=== PATIENT | female | born 1955 | race Caucasian/White ===

== ENCOUNTER 2019-10-07 11:10 | Outpatient (CLI) | payer BC, SELFPAY ==
--- NOTE | ~2019-10-07 | XR_ITS ---
EXAMINATION: XR knee RT 3V DATE: 10/07/2019 11:54 INDICATION: Unspecified injury of unspecified lower leg, initial encounter. TECHNIQUE: 3 views of right knee were obtained. COMPARISON: Right knee radiographs 01/12/2007 FINDINGS: Bone alignment is normal. No fracture. There is mild osteoarthritis of patellofemoral collette rtment. No knee joint effusion. IMPRESSION: 1. Mild right knee osteoarthritis. Reviewed, dictated and finalized at location A.
--- NOTE | ~2019-10-07 | XR_ITS ---
EXAMINATION: XR knee LT 3V DATE: 10/07/2019 11:54 INDICATION: Unspecified injury of unspecified lower leg, initial encounter. TECHNIQUE: 3 views of left knee were obtained. COMPARISON: Left knee radiographs 01/12/2007 FINDINGS: Bone alignment is normal. No fracture. There is mild osteoarthritis of patellofemoral collette rtment. No knee joint effusion. IMPRESSION: 1. Mild left knee osteoarthritis. Reviewed, dictated and finalized at location A.
== END 2019-10-07 11:11 | disposition home or self-care (01) ==
LOC: ANHIMG 11:21
PROVIDERS: PCP Family Medicine; Visit Provider Physician Assistant Medical
DX: M17.0 Bilateral primary osteoarthritis of knee (principal)
CPT/HCPCS: 73562

== ENCOUNTER 2020-02-04 11:04 | Outpatient (CLI) | payer BC, SELFPAY ==
[2020-02-04 11:21] LABS: Basophils Absolute Auto 0.1 K/mm3 (0.0-0.1); Basophils Percent Auto 1.2 % (0.2-1.2); Eosinophils Absolute Auto 0.2 K/mm3 (0-0.3); Eosinophils Percent Auto 2.8 % (0-4.4); Hemoglobin 14.4 g/dL (12.0-15.0); Immature Granulocyte Absolute 0.01 K/mm3 (0.00-0.031); Immature Granulocyte Percent A 0.2 % (0-0.5); Lymphocytes Absolute Auto 1.63 K/mm3 (0.9-3.2); Mean Corpuscular HGB Conc 32.7 g/dl (32-36); Mean Corpuscular Hemoglobin 31.5 pg (26-34); Mean Corpuscular Volume 96.3 fl (80-100); Mean Platelet Volume 8.4 fl (7.4-10.4); Monocytes Absolute Auto 0.5 K/mm3 (0.1-0.6); Monocytes Percent Auto 9.3 % (2.6-8.5); Neutrophils Absolute Auto 3.2 K/mm3 (1.3-6.7); Neutrophils Percent Auto 57.5 % (45.5-73.1); Platelet Count Result 395 k/mm3 (150-375); Red Blood Count 4.57 M/mm3 (4.2-5.4); Red Cell Distribution Width 12.6 % (11.5-14.5); White Blood Count 5.6 K/mm3 (4.5-10.0)
[2020-02-04 11:28] LABS: Blood Urea Nitrogen 9 mg/dL (8-26); Carbon Dioxide 29 mmol/L (22-30); Chloride 101 mmol/L (98-109); Estimated Glomerular Filt Rate > 60; Glucose 91 mg/dL (70-105); Potassium 4.3 mmol/L (3.5-4.9); Sodium 139 mmol/L (138-146)
== END 2020-02-04 11:05 | disposition home or self-care (01) ==
PROVIDERS: PCP Family Medicine; Visit Provider Internal Medicine Hematology & Oncology
DX: D47.3 Essential (hemorrhagic) thrombocythemia (principal)
CPT/HCPCS: 36415; 80048; 85025

== ENCOUNTER 2020-06-08 10:30 | Outpatient (CLI) | payer BC, SELFPAY | END 2020-06-08 10:31 | disposition home or self-care (01) | LOC: ANHCOVIDVC 10:30 | PROVIDERS: PCP Family Medicine | DX: Z23 Encounter for immunization (principal) | CPT/HCPCS: 0001A; 91300 ==

== ENCOUNTER 2020-06-29 10:31 | Outpatient (CLI) | payer BC, SELFPAY | END 2020-06-29 10:32 | disposition home or self-care (01) | LOC: ANHCOVIDVC 10:31 | PROVIDERS: PCP Family Medicine | DX: Z23 Encounter for immunization (principal) | CPT/HCPCS: 0002A; 91300 ==

== ENCOUNTER 2022-01-31 13:23 | Outpatient (CLI) | payer BC, SELFPAY ==
[2022-01-31 13:37] LABS: Basophils Absolute Auto 0.1 K/mm3 (0.0-0.1); Basophils Percent Auto 1.2 % (0.2-1.2); Eosinophils Absolute Auto 0.2 K/mm3 (0-0.3); Eosinophils Percent Auto 3.4 % (0-4.4); Hematocrit 44.7 % (37.0-47.0); Hemoglobin 14.7 g/dL (12.0-15.0); Immature Granulocyte Absolute 0.01 K/mm3 (0.00-0.031); Immature Granulocyte Percent A 0.1 % (0-0.5); Lymphocytes Absolute Auto 1.91 K/mm3 (0.9-3.2); Mean Corpuscular HGB Conc 32.9 g/dl (32-36); Mean Corpuscular Hemoglobin 31.6 pg (26-34); Mean Corpuscular Volume 96.1 fl (80-100); Mean Platelet Volume 8.4 fl (7.4-10.4); Monocytes Absolute Auto 0.8 K/mm3 (0.1-0.6); Neutrophils Absolute Auto 3.9 K/mm3 (1.3-6.7); Neutrophils Percent Auto 56.3 % (45.5-73.1); Platelet Count Result 399 k/mm3 (150-375); Red Blood Count 4.65 M/mm3 (4.2-5.4); Red Cell Distribution Width 12.5 % (11.5-14.5); White Blood Count 6.8 K/mm3 (4.5-10.0)
[2022-01-31 13:42] LABS: Blood Urea Nitrogen 13 mg/dL (8-26); Carbon Dioxide 29 mmol/L (22-30); Chloride 102 mmol/L (98-109); Estimated Glomerular Filt Rate > 60; Glucose 80 mg/dL (70-105); Ionized Calcium (POC) 1.18 mmol/L (1.11-1.31); Potassium 4.4 mmol/L (3.5-4.9); Sodium 140 mmol/L (138-146)
[2022-01-31 16:50] LABS: Alanine Aminotransferase 17 U/L (6-35); Albumin Level 4.7 g/dL (3.5-5.1); Alkaline Phosphatase 71 U/L (38-126); Anion Gap 6 mmol/L (8-16); Aspartate Amino Transferase 24 U/L (14-36); Bilirubin,Total 0.2 mg/dL (0.2-1.3); Blood Urea Nitrogen 13 mg/dL (7-17); Calcium 9.3 mg/dL (8.4-10.2); Carbon Dioxide 31 mmol/L (22-30); Chloride 100 mmol/L (98-107); Estimated Glomerular Filt Rate > 60; Glucose 76 mg/dL (65-110); Potassium 4.3 mmol/L (3.4-5.0); Sodium 137 mmol/L (137-145)
== END 2022-01-31 13:24 | disposition home or self-care (01) ==
LOC: ANHLAB 13:25
PROVIDERS: PCP Family Medicine; Visit Provider Internal Medicine Hematology & Oncology
DX: D75.839 Thrombocytosis, unspecified (principal)
CPT/HCPCS: 36415; 80047; 80053; 85025

== ENCOUNTER 2022-09-23 11:49 | Outpatient (CLI) | payer BC, SELFPAY ==
--- NOTE | ~2022-09-23 | MM_ITS ---
EXAMINATION: MM screening [facility] BI w nohelia HISTORY: Screening mammogram TECHNIQUE: Craniocaudal and mediolateral oblique 3-D tomosynthesis images were obtained and synthetic 2-D images were generated. CAD analysis was submitted and interpreted. COMPARISON: April 19, 2018, June 06, 2016 bilateral screening mammogram examinations BREAST PARENCHYMAL COMPOSITION: There are scattered areas of fibroglandular density. FINDINGS: There is an irregular 2 mm hypodensity opacity in the posterior mid right breast on cranioc audal view. Diagnostic right mammogram and right breast ultrasound examination are recommended. No other suspicious mass, architectural distortion, malignant calcification, skin thickening or retra ction of either breast is detected. IMPRESSION: 1. 2 mm irregular opacity in the posterior central right breast on craniocaudal view 2. Diagnostic right mammogram and right breast ultrasound examination are recommended BI-RADS Category 0: Incomplete: Needs additional imaging evaluation. Reviewed, dictated and finalized at location A. IMPRESSION: 1. 2 mm irregular opacity in the posterior central right breast on craniocaudal view 2. Diagnostic right mammogram and right breast ultrasound examination are recom mended BI-RADS Category 0: Incomplete: Needs additional imaging evaluation.
== END 2022-09-23 11:50 | disposition home or self-care (01) ==
LOC: ANHIMG 11:51
PROVIDERS: PCP Family Medicine; Visit Provider Family Medicine
DX: Z12.31 Encounter for screening mammogram for malignant neoplasm of breast (principal); R92.8 Other abnormal and inconclusive findings on diagnostic imaging of breast
CPT/HCPCS: 77063; 77067

== ENCOUNTER 2022-10-21 11:40 | Outpatient (CLI) | payer BC, SELFPAY ==
--- NOTE | ~2022-10-21 | MM_ITS ---
EXAMINATION: MM diagnostic [facility] RT w nohelia HISTORY: Right breast asymmetry on screening mammogram TECHNIQUE: Additional 3-D tomosynthesis images of the right breast were performed and synthetic 2-D i mages were generated. CAD analysis was submitted and interpreted. COMPARISON: 09/23/2022, 06/09/2018, 06/06/2016 FINDINGS: There is a return to baseline fibroglandular appearance with spot compression of the right breast in the area questioned on screening mammogram. IMPRESSION: 1. No mammographic evidence of malignancy. 2. Recommend routine screening mammography in one year. BI-RADS Category 1: Negative Reviewed, dictated and finalized at location B.
== END 2022-10-21 11:41 | disposition home or self-care (01) ==
LOC: ANHIMG 11:46
PROVIDERS: PCP Family Medicine; Visit Provider Nurse Practitioner Family
DX: R92.8 Other abnormal and inconclusive findings on diagnostic imaging of breast (principal)
CPT/HCPCS: 77061; 77065; G0279

== ENCOUNTER → 2022-11-07 13:30 | Outpatient (CLI) | payer BC, SELFPAY ==
--- NOTE | ~2022-11-07 | XR_ITS ---
EXAMINATION: XR shoulder LT min 2V DATE: 11/07/2022 13:52 INDICATION: Left shoulder injury. TECHNIQUE: 4 views of left shoulder were obtained. COMPARISON: None. FINDINGS: Bone alignment is normal. No fracture. There is mild osteoarthritis of glenohumeral joint a nd moderate osteoarthritis of acromioclavicular joint. IMPRESSION: 1. Polyarticular osteoarthritis. Reviewed, dictated and finalized at location E.
== END ==
PROVIDERS: PCP Family Medicine; Visit Provider Nurse Practitioner Family
DX: M19.012 Primary osteoarthritis, left shoulder (principal)
CPT/HCPCS: 73030

== ENCOUNTER 2022-12-01 08:39 | Outpatient (CLI) | payer BC, SELFPAY ==
--- NOTE | ~2022-12-01 | MR_ITS ---
MRI of the left shoulder Technique: Axial proton-density fat-sat images, coronal proton density fat-sat and T2 fat-sat images, and sagittal T1-weighted and T2 fat-sat images were acquired. Clinical History: Pain Findings: There is mild AC joint degenerative change. Coracoclavicular, coracoacromial, and coracohum eral ligaments are intact. There is focal full-thickness tear at the distal supraspinatus tendon insertion, measuring 8 x 7 mm i n extent. Infraspinatus tendon is intact, without partial or full-thickness tear. Subscapularis tendo n is intact with mild to moderate tendinosis. Tendon of the long head of the biceps is intact. No labral tear identified. There is thickening and increased signal of the inferior glenohumeral ligament. No glenohumeral joint effusion. No fluid distention of the subacromial/subdeltoid bursa. No degenerative change of the gle nohumeral joint. No muscle atrophy or edema. Impression: 8 x 7 mm full-thickness tear at the distal supraspinatus tendon insertion. Thickening and increased signal of the inferior glenohumeral ligament could reflect adhesive capsulit is. Correlate clinically. Mild AC joint degenerative change. Reviewed, dictated and finalized at [facility]. Impression: 8 x 7 mm full-thickness tear at the distal supraspinatus tendon insertion. Thickening and increased signal of the inferior glenohumeral ligament could ref lect adhesive capsulitis. Correlate clinically. Mild AC joint degenerative change.
== END 2022-12-01 08:40 | disposition home or self-care (01) ==
PROVIDERS: PCP Family Medicine; Visit Provider Nurse Practitioner Family
DX: M25.612 Stiffness of left shoulder, not elsewhere classified (principal); M75.102 Unspecified rotator cuff tear or rupture of left shoulder, not specified as traumatic
CPT/HCPCS: 73221

== ENCOUNTER 2023-01-31 12:46 | Outpatient (CLI) | payer MEDICARE, BC, SELFPAY ==
[2023-01-31 13:03] LABS: Basophils Absolute Auto 0.1 K/mm3 (0.0-0.1); Basophils Percent Auto 1.1 % (0.2-1.2); Eosinophils Absolute Auto 0.3 K/mm3 (0-0.3); Eosinophils Percent Auto 3.7 % (0-4.4); Hematocrit 43.6 % (37.0-47.0); Hemoglobin 14.2 g/dL (12.0-15.0); Immature Granulocyte Absolute 0.02 K/mm3 (0.00-0.031); Immature Granulocyte Percent A 0.2 % (0-0.5); Lymphocytes Absolute Auto 2.67 K/mm3 (0.9-3.2); Lymphocytes Percent Auto 31.7 % (18.3-44.2); Mean Corpuscular HGB Conc 32.6 g/dl (32-36); Mean Corpuscular Hemoglobin 31.2 pg (26-34); Mean Corpuscular Volume 95.8 fl (80-100); Mean Platelet Volume 9.1 fl (7.4-10.4); Monocytes Absolute Auto 0.8 K/mm3 (0.1-0.6); Neutrophils Absolute Auto 4.6 K/mm3 (1.3-6.7); Neutrophils Percent Auto 54.3 % (45.5-73.1); Platelet Count Result 344 k/mm3 (150-375); Red Blood Count 4.55 M/mm3 (4.2-5.4); Red Cell Distribution Width 12.7 % (11.5-14.5); White Blood Count 8.4 K/mm3 (4.5-10.0)
[2023-01-31 13:08] LABS: Blood Urea Nitrogen 10 mg/dL (8-26); Carbon Dioxide 25 mmol/L (22-30); Chloride 98 mmol/L (98-109); Estimated Glomerular Filt Rate > 60; Glucose 106 mg/dL (70-105); Ionized Calcium (POC) 1.12 mmol/L (1.11-1.31); Potassium 3.9 mmol/L (3.5-4.9); Sodium 137 mmol/L (138-146)
== END 2023-01-31 12:47 | disposition home or self-care (01) ==
LOC: ANHLAB 12:51
PROVIDERS: PCP Family Medicine; Visit Provider Internal Medicine Hematology & Oncology
DX: D75.839 Thrombocytosis, unspecified (principal)
CPT/HCPCS: 36415; 80047; 85025

== ENCOUNTER 2023-04-17 12:20 | Outpatient (CLI) | payer MEDICARE, BC, SELFPAY ==
--- NOTE | 2023-04-17 12:46 | ECG_ITS ---
Measurements Intervals [place] Rate: 79 P: 55 FL: 160 QRS: 43 QRSD: 87 T: 34 QT: 346 QTc: 398 Interpretive Statements SINUS RHYTHM MILD NONSPECIFIC T-WAVE FLATTENING BORDERLINE ECG Electronically Signed On 04-17-2023 18:30:03 COURT USHER by Jerry Cassidy M.D.
== END 2023-04-17 12:21 | disposition home or self-care (01) ==
LOC: ANHSURGERY 12:26
PROVIDERS: PCP Family Medicine; Visit Provider Orthopaedic Surgery
DX: Z87.891 Personal history of nicotine dependence (principal); Z01.818 Encounter for other preprocedural examination; R94.31 Abnormal electrocardiogram [ECG] [EKG]
CPT/HCPCS: 93005

== ENCOUNTER 2023-04-21 05:05 | Day surgery (SDC) | payer MEDICARE, BC, SELFPAY ==
--- NOTE | 2023-04-10 12:58 | PC.NURSE ---
Report to the Outpatient Waiting Room, entrance under the green pavilion located off [facility], at time _0830 on date __04/19/23 . Planned Procedure Time: _1030 . Time changes happen often and if your time is changed the preop area will call you the afternoon before. - You and your visitor will be asked to self-screen and do not enter if you have any COVID symptoms. - A mask is optional within the hospital at this time. Patients may have clear liquids (water, carbonated beverages, clear teas, apple juice) until 3 hours prior to surgery( 7:30 AM ) with a maximum of 20 ounces. - No food from midnight until time of surgery Take the following medications with a SIP of water the morning of surgery: _ESCITALOPRAM DO NOT STOP ANY OF YOUR OTHER PRESCRIPTION MEDICATIONS PRIOR TO SURGERY ?EXCEPT THE FOLLOWING Medications to discontinue per physician __ALL VITAMINS AND SUPPLEMENTS 3 DAYS PRE OP.LAST DOSE 04/15/[address] CARBAJAL MAY TAKE TYLENOL IF NEEDED FOR PAIN Please no make-up, nail icelandic, hairspray, perfume, deodorant, or body powder the day of surgery. No jewelry (including any body piercings) or valuables the day of surgery, leave them at home. Please take a shower or bath the night before, or the morning of, surgery with an antibacterial soap. Wear comfortable, loose fitting clothing. Children are encouraged to wear pajamas. - Jewelry must be removed prior to entering the operating room. Rings and piercings that are not removed may be cut off. - The hospital will not accept responsibility for valuables. - Please leave all valuables, including medications, at home the day of surgery. If you are going home after surgery, a licensed yard driver must drive you home. - NO public transportation without another adult if you receive anesthesia. - We recommend that an adult stay with you for 24 hours following discharge. - We also recommend that you do not drive, make important decision, drink alcoholic beverages, or take any drugs that were not prescribed by your health care provider for at least 24 hours after your discharge time. Follow any additional instructions given to you from your surgeon. If you or anyone in your household have experienced Covid symptoms in the past week, please notify your surgeon or the nurse liaison at the phone number below for possible testing. Telephone instructions given to _PATIENT and asked if any additional questions and then verbalized understanding. Patient advised to call surgeon office or pre surgery nurse liaison [phone] if any additional questions.
[2023-04-10 13:11] VITALS: BMI 27.6
--- NOTE | 2023-04-14 10:41 | PC.NURSE ---
Report to the Outpatient Waiting Room, entrance under the green pavilion located off [facility], at time _0600 on date _04/21/23 . Planned Procedure Time: 0730 . Time changes happen often and if your time is changed the preop area will call you the afternoon before. - You and your visitor will be asked to self-screen and do not enter if you have any COVID symptoms. - A mask is optional within the hospital at this time. Patients may have clear liquids (water, carbonated beverages, clear teas, apple juice) until 3 hours prior to surgery ( 4:30 AM)with a maximum of 20 ounces. - No food from midnight until time of surgery Take the following medications with a SIP of water the morning of surgery: ___ESCITALOPRAM DO NOT STOP ANY OF YOUR OTHER PRESCRIPTION MEDICATIONS PRIOR TO SURGERY ?EXCEPT THE FOLLOWING Medications to discontinue per physician _HOLD ALL VITAMINS AND SUPPLEMENTS 3 DAYS PRE OP.LAST DOSE 04/17/[address] CARBAJAL_ Please no make-up, nail wolof, hairspray, perfume, deodorant, or body powder the day of surgery. No jewelry (including any body piercings) or valuables the day of surgery, leave them at home. Please take a shower or bath the night before, or the morning of, surgery with an antibacterial soap. Wear comfortable, loose fitting clothing. Children are encouraged to wear pajamas. - Jewelry must be removed prior to entering the operating room. Rings and piercings that are not removed may be cut off. - The hospital will not accept responsibility for valuables. - Please leave all valuables, including medications, at home the day of surgery. If you are going home after surgery, a licensed driver supervisor must drive you home. - NO public transportation without another adult if you receive anesthesia. - We recommend that an adult stay with you for 24 hours following discharge. - We also recommend that you do not drive, make important decision, drink alcoholic beverages, or take any drugs that were not prescribed by your health care provider for at least 24 hours after your discharge time. Follow any additional instructions given to you from your surgeon. If you or anyone in your household have experienced Covid symptoms in the past week, please notify your surgeon or the nurse liaison at the phone number below for possible testing. Telephone instructions given to ___PATIENT and asked if any additional questions and then verbalized understanding. Patient advised to call surgeon office or pre surgery nurse liaison [phone] if any additional questions.
[2023-04-21] VITALS (12 sets, daily range): BP systolic 100–143; BP diastolic 58–85; PULSE 70–93; RESP 12–20; TEMP 36.5–36.6; O2SAT 95–100
[2023-04-21] MEDS: CELECOXIB 200 MG CAPSULE PO (06:35)
[2023-04-21] MEDS: ACETAMINOPHEN 500 MG TABLET 1000 MG PO (06:35)
[2023-04-21] MEDS: LACTATED RINGERS 1,000 ML 30 ML IV CONT ×2 (06:40→09:31)
--- NOTE | 2023-04-21 07:14 | WPDHPUPDATE1 ---
History and Physical Update Update Date/Time: 04/21/23 07:14 History and Physical has been reviewed, including an updated exam of the patient. There are NO changes in the patient's condition. Risks, benefits, and alternatives have been discussed and questions answered. Patient agrees to proceed with procedure.
--- NOTE | 2023-04-21 07:17 | WPDANESEPPF ---
Anes - Initial Pre Proc Eval Procedure: Operation Date: 04/21/23 07:30 Proposed Procedures p Left Rotator Cuff Repair - Juan José Barbosa MD Date/Time: 04/21/23 07:17 Surgeon: Juan José Barbosa MD Pre Op Diagnosis: left rotator cuff tear Patient Data Age: 67 Gender: F Height: 1.57 m Weight: 71.1 kg Last Vital Signs Temp 36.5 C 04/21/23 07:10 Pulse 84 04/21/23 07:10 Resp 16 04/21/23 07:10 BP 100/64 04/21/23 07:10 Pulse Ox 96 04/21/23 07:10 O2 Del Method Room Air 04/21/23 07:10 Allergies Allergy/AdvReac Type Severity Reaction Status Date / Time aspirin Allergy Unknown Fainting Verified 04/21/23 06:15 cetirizine Allergy Unknown Fatigued Verified 04/21/23 06:15 ibandronate sodium Allergy Unknown Muscle Pain Verified 04/21/23 06:15 Penicillins Allergy Unknown Swelling/ Verified 04/21/23 06:15 HIGH FEVER Home Medications Medication Instructions Recorded Confirmed Type esomeprazole magnesium 20 mg 20 mg PO DAILY 02/16/22 04/21/23 History capsule,delayed release (Nexium) fexofenadine-pseudoephedrine ER 1 tablet PO DAILY 02/16/22 04/21/23 History 180 mg-240 mg tablet,ext.release 24 hr (Ana Laura-D 24 Hour) escitalopram oxalate 10 mg tablet 10 mg PO DAILY #90 tabs 02/22/23 04/21/23 Rx (Lexapro) chlorhexidine gluconate 4 % 1 applic topical ONCE #237 mL 04/03/23 04/21/23 Rx topical liquid (Hibiclens) clindamycin phosphate 1 % topical 1 applic topical DAILY #75 mL 04/03/23 04/21/23 Rx gel, once daily (Clindagel) acetaminophen 650 mg 650 mg PO Q12H PRN Pain 04/10/23 04/21/23 History tablet,extended release (Tylenol Arthritis Pain) budesonide-formoterol HFA 80 2 puff inhalation PRN PRN 04/10/23 04/14/23 History mcg-4.5 mcg/actuation aerosol Shortness Of Breath inhaler (Symbicort) cholecalciferol (vitamin D3) 125 125 mcg PO QPM 04/10/23 04/21/23 History mcg (5,000 unit) tablet naproxen sodium 220 mg capsule 220 mg PO PRN PRN Pain 04/10/23 04/21/23 History (Becki) Patient hx anesthesia problems: none Family hx anesthesia problems: none Results Review: All pre-operative results and documents have been reviewed as part of the pre-operative evaluation. [facility] Past Medical History Medical History Adult BMI 27.0-27.9 kg/sq m BMI 28.0-28.9,adult Full thickness tear of left subscapularis tendon Rash Rotator cuff tear, left Supraspinatus tendon tear Surgical History Surgical History Hx of decompression of ulnar nerve Family History Family History Father Pulmonary fibrosis Mother History of uterine fibroid Sibling No problems noted. Other Diabetes mellitus Family history of malignant neoplasm of breast Social History Social History Social History: caffeine use Smoking packs per day: 1 Smoking cigarettes per day: 20.0 Years smoked: 25 Smoking pack-years: 25.00 Smoking status: Former smoker Tobacco type: cigarettes Second hand tobacco smoke exposure: Yes Smoking end date: 02/20/18 Additional smoking assessment comments: CURRENTLY VAPES DAILY Alcohol intake: current Alcohol use details: 8-10 a year Substance use: never Substance use type: does not use Do You Feel Safe in your Home?: Yes Lack of Transportation: No Lack of Food: Never True Current Housing: I Have Housing Concerned About Future Housing: No Difficulty Paying Gas/Electric Bills: No Difficulty Paying for Meds: No Currently Unemployed: No Education: Trade/Vocational Certificate Difficulty w/ Childcare or Family Care: No Living arrangements: with family Occupation/Education: retired Additional occupation/education comments: [employer]. Gender identity (i
[2023-04-21] MEDS: ceFAZolin 2 GM/D5W 50 ML 2 GM/50 ML BAG IVPB (08:33)
--- NOTE | 2023-04-21 09:15 | W.PM.PROC2 ---
Procedure Note - Detailed Date of Procedure 04/21/23 Pre-op Diagnosis left rotator cuff tear Post-op Diagnosis Same Procedure Performed REPAIR LEFT ROTATOR CUFF WITH DCE Surgeon Juan José Barbosa MD Anesthesia General Description of Procedure THE PATIENT WAS TAKEN TO THE OPERATING ROOM AND THEN INTUBATED AND PLACED IN THE BEACH CHAIR POSITION. THE LEFT UPPER EXTREMITY WAS PREPPED AND DRAPED IN THE NORMAL STERILE FASHION. AN INCISION WAS MADE IN BETWEEN THE SAAD-LATERAL ACROMION AND THE AC JOINT. NEXT A MINI OPEN INCISION WAS MADE THROUGH THE DELTOID MUSCLE EXPOSING THE SUBACROMIAL SPACE. A LIMITED ACROMIOPLASTY WAS PREFORMED. THE ROTATOR CUFF WAS IDENTIFIED. THERE WAS A FULL THICKNESS TEAR. IT MEASURED APPROXIMATELY 2 CM X 2 CM. THE GREATER TUBEROSITY WAS DEBRIDED TO BLEEDING BONE. 2 ARTHREX 5.5 SUTURE ANCHORS WERE PLACED IN TO GOOD BONE AND HAD VERY GOOD BITES. RENE-TESSIE TYPE REPAIRS WERE DONE TO THE ROTATOR CUFF AND THERE WAS GOOD APPROXIMATION TO THE GREATER TUBEROSITY. THE REPAIR WAS EXCELLENT. THERE WAS NO IMPINGEMENT ON THE REPAIR FROM THE ACROMION WITH RANGE OF MOTION. THE WOUND WAS IRRIGATED WITH COPIOUS AMOUNTS OF ANTIBIOTIC SOLUTION. THE DELTOID MUSCLE WAS REPAIRED WITH #2 FIBER WIRE AND 0 VICRYL SUTURE. THE SUBCUTANEOUS LAYER WAS APPROXIMATED WITH 2-0 VICRYL. THE SKIN WAS APPROXIMATED WITH 3-0 QUIL AND DERMABOND. STERILE DRESSING WAS APPLIED. PATIENT WAS EXTUBATED. Estimated Blood Loss -20.0 Complications No immediate complications Condition Stable Disposition PACU
[2023-04-21] MEDS: fentaNYL CITRATE INJ (*CRX) 100 MCG/2 ML VIAL 25 MCG IV PUSH ×8 (09:58→10:50)
[2023-04-21] MEDS: oxyCODONE HCL (*CRX) 5 MG TAB IR PO (11:30)
== END 2023-04-21 12:36 | disposition home or self-care (01) ==
PROVIDERS: PCP Family Medicine; Visit Provider Orthopaedic Surgery
PROC: (CPT 23420; principal; 2023-04-21 07:30)
DX: S46.012A Strain of muscle(s) and tendon(s) of the rotator cuff of left shoulder, initial encounter (principal); W10.8XXA Fall (on) (from) other stairs and steps, initial encounter; F17.290 Nicotine dependence, other tobacco product, uncomplicated
CPT/HCPCS: 23410; 23120; A9270; C1713; J0690; J1100; J2250; J2371; J2405; J2704; J3010; J7120

== ENCOUNTER 2024-01-29 11:22 | Outpatient (CLI) | payer MEDICARE, BC, SELFPAY ==
[2024-01-29 11:39] LABS: Basophils Absolute Auto 0.1 K/mm3 (0.0-0.1); Basophils Percent Auto 1.7 % (0.2-1.2); Eosinophils Absolute Auto 0.3 K/mm3 (0-0.3); Hematocrit 44.1 % (37.0-47.0); Hemoglobin 14.3 g/dL (12.0-15.0); Immature Granulocyte Absolute 0.01 K/mm3 (0.00-0.031); Immature Granulocyte Percent A 0.2 % (0-0.5); Lymphocytes Percent Auto 31.3 % (18.3-44.2); Mean Corpuscular HGB Conc 32.4 g/dl (32-36); Mean Corpuscular Hemoglobin 30.5 pg (26-34); Mean Platelet Volume 8.4 fl (7.4-10.4); Monocytes Absolute Auto 0.6 K/mm3 (0.1-0.6); Monocytes Percent Auto 10.1 % (2.6-8.5); Neutrophils Absolute Auto 2.8 K/mm3 (1.3-6.7); Neutrophils Percent Auto 51.7 % (45.5-73.1); Platelet Count Result 367 k/mm3 (150-375); Red Blood Count 4.69 M/mm3 (4.2-5.4); Red Cell Distribution Width 12.9 % (11.5-14.5); White Blood Count 5.4 K/mm3 (4.5-10.0)
[2024-01-29 11:45] LABS: Blood Urea Nitrogen 10 mg/dL (8-26); Carbon Dioxide 26 mmol/L (22-30); Chloride 99 mmol/L (98-109); Estimated Glomerular Filt Rate > 60; Glucose 121 mg/dL (70-105); Ionized Calcium (POC) 1.18 mmol/L (1.11-1.31); Potassium 4.1 mmol/L (3.5-4.9); Sodium 138 mmol/L (138-146)
[2024-01-29 13:35] LABS: Alanine Aminotransferase 17 U/L (6-35); Albumin Level 4.6 g/dL (3.5-5.1); Alkaline Phosphatase 72 U/L (38-126); Anion Gap 7 mmol/L (4-12); Aspartate Amino Transferase 28 U/L (14-36); Bilirubin,Total 0.5 mg/dL (0.2-1.3); Blood Urea Nitrogen 11 mg/dL (7-17); Calcium 9.5 mg/dL (8.4-10.2); Carbon Dioxide 28 mmol/L (22-30); Chloride 101 mmol/L (98-107); Estimated Glomerular Filt Rate > 60; Glucose 119 mg/dL (65-110); Potassium 4.2 mmol/L (3.4-5.0); Sodium 136 mmol/L (137-145)
== END 2024-01-29 11:23 | disposition home or self-care (01) ==
LOC: ANHLAB 11:23
PROVIDERS: PCP Family Medicine; Visit Provider Internal Medicine Hematology & Oncology
DX: D75.839 Thrombocytosis, unspecified (principal)
CPT/HCPCS: 36415; 80047; 80053; 85025

== ENCOUNTER 2024-05-22 01:24 | Day surgery (SDC) | payer MEDICARE, SELFPAY ==
[2024-05-13 11:49] VITALS: BMI 28.2
--- OUTSIDE RECORDS SUMMARY | 2024-05-22 01:28 | XMS_ITS | Clinical Summary ---
Author Organization [facility] Address [address] [place] [address] Care Team Providers Care Head Chef Name Role Phone Barry Major MD Primary Care Provider [phone] Source Comments [facility],non-owned Affiliates and Associated Physician Practices is amultiple site organization consisting of ambulatory clinics and hospital sitesin [place], [place], [place] and [place]. This disclosure is being madepursuant to the Care Everywhere program and may not contain all information available regarding this patient. Last updated 17.[facility] Medications * Be aware that medications may not be up to date on this document. Alwaysverify current medications with the patient. Medication Sig Dispensed Refills Start Date End Date Status esomeprazole (NEXIUM) 20 MG packet Take by mouth. 03/09/2016 Active buPROPion XL 24hr (WELLBUTRIN-XL) 150 MG tablet 3 02/15/2016 Active escitalopram (LEXAPRO) 20 MG tablet 3 12/23/2015 Active fexofenadine (LIMA) 180 MG tablet Take 180 mg by mouth DAILY. 03/09/2016 Active tiotropium (SPIRIVA HANDIHALER) 18 MCG inhalation capsule 3 02/15/2016 Active Active Problems Problem Noted Date Diagnosed Date Pain in left hip 03/09/2016 Social History Tobacco Use Types Packs/Day Years Used Date Smoking Tobacco: Every Day Cigarettes Sex and Gender Information Value Date Recorded Sex Assigned at Not on file Gender Identity Not on file Sexual Orientation Not on file Last Filed Vital Signs Vital Sign Reading Time Taken Comments Blood Pressure 105/66 03/14/2016 8:24 AM DENTAL TECH Pulse - - Temperature 36.3 C (97.3 F) 03/14/2016 8:24 AM DENTAL TECH Respiratory Rate - - Oxygen Saturation - - Inhaled Oxygen Concentration - - Weight - - Height - - Body Mass Index - - Plan of Treatment Health Maintenance Due Date Last Done Comments BONE DENSITY TESTING 1957 COLOGUARD (AGES 45-75) - COL ON CA SCREENING 1957 COLON MONITORING 1957 COLONOSCOPY - COLON CA SCREENING 1957 CT COLONOGRAPHY - COLON CA SCREENING 1957 Colorectal Cancer Screening 1957 FIT - COLON CA SCREENING 1957 FLEX SIG - COLON CA SCREENING 1957 LIPID TESTING 1957 MAMMOGRAM 1957 HEPATITIS C SCREENING 09/20/1975 DTAP/TDAP/TD VACCINES (1 - Tdap) 1976 PNEUMOCOCCAL VACCINE 50+ (1 of 2 - PCV) 1976 ZOSTER VACCINE (1 of 2) 09/25/2007 COVID-19 VACCINE ( - 2023-2 5 season) 2023 INFLUENZA VACCINE (#1) 2023 DEPRESSION SCREENING 02/21/2024 Respiratory Syncytial Virus (RSV) Vaccine Pt: or over 60 yrs (1 - 1-dose 75+ series) 2032 HEPATITIS B VACCINE Aged Out No longe r eligible based on patient's age to complete this topic HIB VACCINE Aged Out No longer eligi ble based on patient's age to complete this topic HPV VACCINE Aged Out No longer eligi ble based on patient's age to complete this topic MENINGOCOCCAL (Group B) VACC INE SHARED DECISION-MAKING Aged Out No longer eligibl e based on patient's age to complete this topic MENINGOCOCCAL GROUPS A/C/Y/W VACCINE Aged Out No longer eligible b ased on patient's age to complete this topic Care Teams Head Chef Relationship Specialty Start Date End Date Barry Major MD [address] [place] [address] PCP - General 03/09/16
--- OUTSIDE RECORDS SUMMARY | 2024-05-22 01:28 | XMS_ITS | Clinical Summary ---
Author Organization [facility] Address [address] [facility] [address] Care Team Providers Care Mems Device Scientist Name Role Phone Barry Major MD Primary Care Provider [phone] Allergies Active Allergy Reactions Criticality Noted Date Comments Aspirin Other (See Comments) High 02/17/2013 Sleepisness, severe prolonged ringing in ears Tired and ear ringing Penicillins Rash,Other (See Comments) High 02/17/2013 Reaction as young child Medications fluticasone (FLONASE) 50 mcg/spray [place], Suspension Administer 2 Sprays in each nostril daily. Active fexofenadine (LIMA) 180 mg tablet Take by mouth. Activ e ACETAMINOPHEN ORAL Take by mouth. Activ e escitalopram oxalate (LEXAPRO) 10 mg tablet Active Active Problems Problem Noted Date Diagnosed Date Thrombocytosis 04/17/2017 Tobacco use 04/17/2017 Encounters Date Type Department Care Team Description 05/08/2024 External Device Data [facility] Provider, Abstract 04/27/2024 External Device Data [facility] Provider, Abstract 04/26/2024 External Device Data [facility] Provider, Abstract 04/24/2024 External Device Data [facility] Provider, Abstract 04/23/2024 External Device Data [facility] Provider, Abstract 04/09/2024 External Device Data [facility] Provider, Abstract 03/13/2024 External Device Data [facility] Provider, Abstract 03/12/2024 External Device Data [facility] Provider, Abstract 03/06/2024 External Device Data [facility] Provider, Abstract from Last 3 Months Family History Medical History Relation Name Comments No Known Problems Brother Respiratory Disease Father No Known Problems Mother Relation Name Status Comments Brother Alive Father Mother Alive Social History Tobacco Use Types Packs/Day Years Used Date Smoking Tobacco: Former Cigarettes 0.5 30 1 03/24/1987 - 01/21/2018 Smokeless Tobacco: Current Tobacco Cessation:Ready to Q uit: Not Asked; Counseling Given: Not Answered Alcohol Use Standard Drinks/Week Comments Yes 0 (1 standard drink = 0.6 oz pur e alcohol) occasional Comments No Sex and Gender Information Value Date Recorded Sex Assigned at Not on file Legal Sex Female 9:43 AM ADJUNCT NURSING [facility]AC[employer]Y Gender Identity Not on file Sexual Orientation Not on file Last Filed Vital Signs Vital Sign Reading Time Taken Comments Blood Pressure 104/67 01/29/2024 11:45 AM ADJUNCT NURSING FACULTY Pulse 86 01/29/2024 11:45 AM ADJUNCT NURSING FACULTY Temperature 36.3 C (97.3 F) 01/29/2024 11:45 AM ADJUNCT NURSING FACULTY Respiratory Rate 17 01/29/2024 11:45 AM ADJUNCT NURSING FACULTY Oxygen Saturation 97% 01/29/2024 11:45 AM ADJUNCT NURSING FACULTY Inhaled Oxygen Concentration - - Weight 72.6 kg (160 lb) 01/29/2024 11:45 AM ADJUNCT NURSING FACULTY Height 158.8 cm (5' 2.5 ) 02/02/2021 1:54 PM ADJUNCT NURSING FACULTY Body Mass Index 28.8 02/02/2021 1:54 PM ADJUNCT NURSING FACULTY Plan of Treatment Health Maintenance Due Date Last Done Comments Pre-Diabetes and Diabetes Screening 1957 DTAP/TDAP/TD VACCINES (1 - Tdap) 1976 BREAST CANCER SCREENING 1997 COLORECTAL SCREENING 2002 Colorectal Cancer Screening 2002 FIT-DNA Q 3 years 2002 FIT/FOBT Q 1 year 2002 Flex Sig/CT Colonography Q 5 years 2002 PNEUMOCOCCAL VACCINE 50+ YEARS (1 of 1 - PCV) 09/25/19 08 ZOSTER VACCINE (1 of 2) 09/25/2007 OSTEOPOROSIS SCREENING 2022 INFLUENZA VACCINE (#1) 2023 RSV VACCINE (60+ or ) (1 - 1-dose 75+ series) 2032 Insurance [facility] FEDERAL [facility] FEDERAL MEDICARE PART A AND B Care Teams Mems Device Scientist Relationship Specialty Start Date End Date Barry Major MD [address] [place] [address] PCP - General Family Practice 04/06/17
[2024-05-22 10:07] VITALS: BP 119/75; PULSE 79; RESP 18; TEMP 35.8; O2SAT 97
[2024-05-22] MEDS: LACTATED RINGERS 1,000 ML 150 ML IV CONT (10:13)
--- NOTE | 2024-05-22 10:31 | WPDANESEPPF ---
Anes - Initial Pre Proc Eval Procedure: Operation Date: 05/22/24 11:15 Proposed Procedures p Screening Colonoscopy - Omar Quinonez MD Date/Time: 05/22/24 10:31 Surgeon: Omar Quinonez MD Pre Op Diagnosis: Screening Patient Data Age: 68 Gender: F Height: 1.57 m Weight: 69.2 kg Last Vital Signs Temp 35.8 C L 05/22/24 10:07 Pulse 79 05/22/24 10:07 Resp 18 05/22/24 10:07 BP 119/75 05/22/24 10:07 Pulse Ox 97 05/22/24 10:07 O2 Del Method Room Air 05/22/24 10:07 Allergies Allergy/AdvReac Type Severity Reaction Status Date / Time aspirin Allergy Unknown Fainting Verified 05/22/24 10:05 cetirizine Allergy Unknown Fatigued Verified 05/22/24 10:05 ibandronate sodium Allergy Unknown Muscle Pain Verified 05/22/24 10:05 Penicillins Allergy Unknown Swelling/ Verified 05/22/24 10:05 HIGH FEVER Home Medications ?Medication ?Instructions ?Recorded ?Confirmed ?Type esomeprazole magnesium 20 mg 20 mg PO DAILY 02/16/22 05/22/24 History capsule,delayed release (Nexium) fexofenadine-pseudoephedrine ER 1 tablet PO DAILY 02/16/22 05/22/24 History 180 mg-240 mg tablet,ext.release 24 hr (Ana Laura-D 24 Hour) acetaminophen 650 mg 650 mg PO Q12H PRN Pain 04/10/23 05/13/24 History tablet,extended release (Tylenol Arthritis Pain) cholecalciferol (vitamin D3) 125 125 mcg PO QPM 04/10/23 05/22/24 History mcg (5,000 unit) tablet naproxen sodium 220 mg capsule 220 mg PO PRN PRN Pain 04/10/23 05/13/24 History (Aleve) escitalopram oxalate 10 mg tablet See Rx Instructions .Route 04/05/24 05/22/24 Rx .COMPLEX #90 tabs Patient hx anesthesia problems: none Family hx anesthesia problems: none Results Review: All pre-operative results and documents have been reviewed as part of the pre-operative evaluation. [facility] Past Medical History Medical History (Updated 04/23/24 @ 10:14 by Laney Banda, [employer] SALESPERSON) Thyroid mass Pulmonary emphysema Diarrhea BMI 25.0-25.9,adult EBV exposure Arthralgia of temporomandibular joint, unspecified side Fatigue Other fatigue Left shoulder pain Limited range of motion (ROM) of shoulder Elevated platelet count Abnormality of breast on screening mammography Serum potassium elevated Rotator cuff tear, left BMI 28.0-28.9,adult Supraspinatus tendon tear Full thickness tear of left subscapularis tendon Rash Adult BMI 27.0-27.9 kg/sq m Surgical History Surgical History (Updated 04/17/24 @ 13:47 by Laney Banda APRN) S/P left rotator cuff repair DOS 04/21/23 Hx of decompression of ulnar nerve Family History Family History Father Pulmonary fibrosis Mother History of uterine fibroid Sibling No problems noted. Other Diabetes mellitus Family history of malignant neoplasm of breast Social History Social History Social History: caffeine use Smoking packs per day: 1 Smoking cigarettes per day: 20.0 Years smoked: 35 Smoking pack-years: 35.00 Smoking status: Former smoker Tobacco type: cigarettes Second hand tobacco smoke exposure: Yes Smoking end date: 02/20/18 Additional smoking assessment comments: CURRENTLY VAPES DAILY Alcohol intake: never Alcohol use details: 8-10 a year Substance use: never Substance use type: does not use Do You Feel Safe in your Home?: Yes Lack of Transportation: No Lack of Food: Never True Current Housing: I Have Housing Concerned About Future Housing: No Difficulty Paying Gas/Electric Bills: No Difficulty Paying for Meds: No Currently Unemployed: No Education: Trade/Vocational Certificate Difficulty w/ Childcare or Family Care: No Living arrangements: with family Occupation/Education: retired Additional occupation/education comments: [employer]. Gender identity (if verbalized by the patient): Female Spiritual care concerns: No Anes - Eval Final PreProcedure Day of Procedure 05/22/24 10:31 Patient weight: overweight Heart: regular rate and rhythm Lungs: clear to auscultation Airway: Mallampati scale class II Neurological: alert and oriented Last oral intake: >/= 8 hours ASA classification: III Emergent: no Anesthetic plan: proceed Anesthesia type and monitoring: general GIVS and standard monitoring Results Review: All pre-operative results and documents have been reviewed as part of the pre-operative evaluation. Informed Consent: The patient's anesthetic plan and its attendant risks and benefits were discussed with the patient/family/POA. Questions were solicited and answers provided to the satisfaction of the patient/family/POA.
--- NOTE | 2024-05-22 10:50 | PM.IMHP ---
H&P: HPI History of Present Illness Date/Time: 05/22/24 10:50 Chief Complaint: History of colon polyps Narrative: The patient has a history of colonic polyps, the last colonoscopy was 6 years ago approximately. Review of Systems Review of Systems: All systems reviewed & are unremarkable except as noted in HPI and below PMFSH Past Medical History Medical History (Updated 05/22/24 @ 10:50 by Omar Quinonez MD) Thyroid mass Pulmonary emphysema Diarrhea BMI 25.0-25.9,adult EBV exposure Arthralgia of temporomandibular joint, unspecified side Fatigue Other fatigue Left shoulder pain Limited range of motion (ROM) of shoulder Elevated platelet count Abnormality of breast on screening mammography Serum potassium elevated Rotator cuff tear, left BMI 28.0-28.9,adult Supraspinatus tendon tear Full thickness tear of left subscapularis tendon Rash Adult BMI 27.0-27.9 kg/sq m Surgical History Surgical History (Updated 04/17/24 @ 13:47 by Laney Banda, PAUL) S/P left rotator cuff repair DOS 04/21/23 Hx of decompression of ulnar nerve Family History Family History Father Pulmonary fibrosis Mother History of uterine fibroid Sibling No problems noted. Other Diabetes mellitus Family history of malignant neoplasm of breast Social History Social History Social History: caffeine use Smoking packs per day: 1 Smoking cigarettes per day: 20.0 Years smoked: 35 Smoking pack-years: 35.00 Smoking status: Former smoker Tobacco type: cigarettes Second hand tobacco smoke exposure: Yes Smoking end date: 02/20/18 Additional smoking assessment comments: CURRENTLY VAPES DAILY Alcohol intake: never Alcohol use details: 8-10 a year Substance use: never Substance use type: does not use Do You Feel Safe in your Home?: Yes Lack of Transportation: No Lack of Food: Never True Current Housing: I Have Housing Concerned About Future Housing: No Difficulty Paying Gas/Electric Bills: No Difficulty Paying for Meds: No Currently Unemployed: No Education: Trade/Vocational Certificate Difficulty w/ Childcare or Family Care: No Living arrangements: with family Occupation/Education: retired Additional occupation/education comments: [employer]. Gender identity (if verbalized by the patient): Female Spiritual care concerns: No Meds Home Medications and Allergies Home Medications ?Medication ?Instructions ?Recorded ?Confirmed ?Type esomeprazole magnesium 20 mg 20 mg PO DAILY 02/16/22 05/22/24 History capsule,delayed release (Nexium) fexofenadine-pseudoephedrine ER 1 tablet PO DAILY 02/16/22 05/22/24 History 180 mg-240 mg tablet,ext.release 24 hr (Ana Laura-D 24 Hour) acetaminophen 650 mg 650 mg PO Q12H PRN Pain 04/10/23 05/13/24 History tablet,extended release (Tylenol Arthritis Pain) cholecalciferol (vitamin D3) 125 125 mcg PO QPM 04/10/23 05/22/24 History mcg (5,000 unit) tablet naproxen sodium 220 mg capsule 220 mg PO PRN PRN Pain 04/10/23 05/13/24 History (Aleve) escitalopram oxalate 10 mg tablet See Rx Instructions .Route 04/05/24 05/22/24 Rx .COMPLEX #90 tabs Allergies Allergy/AdvReac Type Severity Reaction Status Date / Time aspirin Allergy Unknown Fainting Verified 05/22/24 10:05 cetirizine Allergy Unknown Fatigued Verified 05/22/24 10:05 ibandronate sodium Allergy Unknown Muscle Pain Verified 05/22/24 10:05 Penicillins Allergy Unknown Swelling/ Verified 05/22/24 10:05 HIGH FEVER Vital Signs Vital Signs - 24 hr 05/22/24 10:07 Temperature 96.5 F L Pulse Rate 79 Respiratory Rate 18 Blood Pressure 119/75 Pulse Oximetry 97 Oxygen Delivery Room Air Exam Const: General: cooperative and healthy appearing Resp: Effort & Inspection: normal respiratory effort and able to speak in complete sentences Auscultation: clear to auscultation bilaterally Cardio: Rate: regular rate Rhythm: regular rhythm GI: Inspection: normal to inspection GI Palp: No No hepatosplenomegaly present Auscultation: normal bowel sounds Rectal Exam: deferred Skin: General skin exam: normal color Psych: Appearance: grossly normal Mental Status: mental status grossly normal Assessment and Plan Assessment and plan (1) History of colonic polyps: Code(s): Z86.0100 - Personal history of colon polyps, unspecified Status: Acute Assessment and Plan: The patient is deemed a good candidate for the procedure. Consent signed. Will proceed.
[2024-05-22 11:15] VITALS: BP 103/66; PULSE 69; RESP 20; O2SAT 97
[2024-05-22 11:25] VITALS: BP 102/64; PULSE 62; RESP 19; O2SAT 100
[2024-05-22 11:35] VITALS: BP 119/69; PULSE 57; RESP 14; O2SAT 100
== END 2024-05-22 11:48 | disposition home or self-care (01) ==
PROVIDERS: PCP Family Medicine; Referring Provider Nurse Practitioner Family; Visit Provider Internal Medicine Gastroenterology
PROC: 0DJD8ZZ Inspection of Lower Intestinal Tract, Via Natural or Artificial Opening Endoscopic (ICD-10-PCS; CPT 45378; principal; 2024-05-22 11:15)
DX: Z12.11 Encounter for screening for malignant neoplasm of colon (principal); K57.30 Diverticulosis of large intestine without perforation or abscess without bleeding; J43.9 Emphysema, unspecified; M26.629 Arthralgia of temporomandibular joint, unspecified side; F17.290 Nicotine dependence, other tobacco product, uncomplicated; Z79.1 Long term (current) use of non-steroidal anti-inflammatories (NSAID); Z98.890 Other specified postprocedural states; Z86.0100 Personal history of colon polyps, unspecified; Z80.3 Family history of malignant neoplasm of breast
CPT/HCPCS: G0105; J2003; J2704; J7120